=== PATIENT | female | born 1930 | race African-American/Black ===

== ENCOUNTER 2017-12-04 17:05 | Emergency (ER) | payer OTHER ==
[2017-12-04 17:23] VITALS: BMI 37.5
--- NOTE | 2017-12-04 17:33 | PDOC ---
History of Present Illness - General Chief Complaint: Pain, Acute Stated Complaint: PAIN Time Seen by Provider: 12/04/17 17:33 - History of Present Illness Initial Comments: 12/04/17 17:36 Ms. Flynn is an 87 yo female w/ pmh of COPD, morbid obesity, CAD, HTN, hypothyroidism, and mild dementia who presents with complaints of right lower extremity pain. She reports she fell out of her wheelchair and has had pain since. [facility] staff also report she has been slightly "more" demented than normal lately. The patient denies chest pain, shortness of breath, headache and dizziness. Denies fever, chills, nausea, vomit, diarrhea and constipation. Denies dysuria, frequency, urgency and hematuria. Allergies: Lisinopril, penicillin Past History - Past Medical History Allergies/Adverse Reactions: Allergies Allergy/AdvReac Type Severity Reaction Status Date / Time lisinopril Allergy Verified 04/28/15 18:11 penicillin V Allergy Verified 04/28/15 18:11 Penicillins Allergy Verified 04/28/15 18:11 Home Medications: Ambulatory Orders Albuterol 2.5/Ipratropium 0.5 [Duoneb -] 1 neb IH Q6H 10/09/14 Apixaban [Eliquis] 5 mg PO BID 10/09/14 Carvedilol [Coreg] 12.5 mg PO BID 10/09/14 Mag Hydrox/Al Hydrox/Simeth [MAALOX *SUSPENSION* -] 30 ml PO BID 10/09/14 Salmeterol/Fluticasone [Advair 100Mcg/50Mcg -] 1 inh PO BID 10/09/14 Simvastatin [Zocor -] 10 mg PO HS 10/09/14 metFORMIN HCL [Glucophage -] 500 mg PO DAILY 10/09/14 Acetaminophen [Tylenol .Regular Strength -] 650 mg PO Q6H PRN 11/16/14 Phenytoin Na Extended [Dilantin -] 300 mg PO HS capsule 11/19/14 Ranitidine [Zantac -] 150 mg PO BID tablet 11/19/14 Latanoprost 0.005% Eye Drops [Xalatan 0.005% Eye Drops -] 1 drop OS HS 04/28/15 Fluticasone Prop 0.05% Nasal [Flonase -] 2 spray NS DAILY #20 spray 05/15/15 Levothyroxine [Synthroid -] 25 mcg PO DAILY@0700 #30 tablet 05/15/15 Zinc Oxide/Panthenol/Vitamin E [Balmex Cream -] 1 applic TP BID #1 tube predniSONE [Deltasone -] 5 mg PO DAILY #30 tablet 05/15/15 Cyanocobalamin [Vitamin B12 -] 1,000 mcg PO DAILY 12/04/17 Escitalopram Oxalate [Lexapro -] 5 mg PO DAILY 12/04/17 Furosemide [Lasix] 40 mg PO DAILY 12/04/17 Hydroxyzine HCl 25 mg PO DAILY 12/04/17 Ranitidine [Zantac -] 150 mg PO BID 12/04/17 Anemia: Yes Asthma: Yes Cardiac Disorders: Yes (ME) COPD: Yes CHF: Yes Diabetes: Yes GI Disorders: Yes (anemia,gerd, gastritis) Disorders: No HTN: Yes Hypercholesterolemia: Yes Thyroid Disease: Yes (hypo) - Surgical History Abdominal Surgery: Yes (hernia repair) Cholecystectomy: Yes - Immunization History Immunization Up to Date: Yes - Suicide/Smoking/Psychosocial Hx Smoking History: Never smoked Have you smoked in the past 12 months: Yes Number of Cigarettes Smoked Daily: 10 If you are a former smoker, when did you quit?: JUN 2014 'Breaking Loose' booklet given: 10/09/14 Hx Alcohol Use: No Drug/Substance Use Hx: No Substance Use Type: None Hx Substance Use Treatment: No Review of Systems - Review of Systems Comments:: 12/04/17 17:36 GENERAL/CONSTITUTIONAL: No fever or chills. No weakness. HEAD, EYES, EARS, NOSE AND THROAT: No change in vision. No ear pain or discharge. No sore throat. CARDIOVASCULAR: No chest pain or shortness of breath RESPIRATORY: No cough, wheezing, or hemoptysis. GASTROINTESTINAL: No nausea, vomiting, diarrhea or constipation. GENITOURINARY: No dysuria, frequency, or change in urination. MUSCULOSKELETAL: +RLE pain as described. SKIN: No rash NEUROLOGIC: No headache, vertigo, loss of consciousness, or change in strength/ sensation. ENDOCRINE: No increased thirst. No abnormal weight change HEMATOLOGIC/LYMPHATIC: No anemia, easy bleeding, or history of blood clots. ALLERGIC/IMMUNOLOGIC: No hives or skin allergy. *Physical Exam - Vital Signs Last Vital Signs Temp Pulse Resp BP Pulse Ox 97.6 F 95 H 18 114/65 97 12/04/17 17:20 12/04/17 17:20 12/04/17 17:20 12/04/17 17:20 12/04/17 17:20 - Physical Exam Comments: 12/04/17 17:36 GENERAL: Awake, alert, and fully oriented, in no acute distress HEAD: No signs of trauma, normocephalic, atraumatic EYES: PERRLA, EOMI, sclera anicteric, conjunctiva clear ENT: Auricles normal inspection, hearing grossly normal, nares patent, oropharynx clear without exudates. Moist mucosa NECK: Normal ROM, supple, no lymphadenopathy, JVD, or masses LUNGS: No distress, speaks full sentences, clear to auscultation bilaterally HEART: Regular rate and rhythm, normal S1 and S2, no murmurs, rubs or gallops, peripheral pulses normal and equal bilaterally. ABDOMEN: Soft, nontender, normoactive bowel sounds. No guarding, no rebound. No masses EXTREMITIES: +Pain with palpation of Right knee. Pain with movement of knee joint. Otherwise normal inspection, normal range of motion, no edema. No clubbing or cyanosis. NEUROLOGICAL: Cranial nerves II through XII grossly intact. Normal speech, normal gait, no focal sensorimotor deficits SKIN: Warm, Dry, normal turgor, no rashes or lesions noted. ED Treatment Course - LABORATORY CBC & Chemistry Diagram: 12/04/17 18:05 12/04/17 18:05 Medical Decision Making - Medical Decision Making 12/04/17 20:41 Ms. Flynn is an 87 yo female w/ pmh as described who presents for evaluation of R knee pain. XR femur, knee, tib/fib negative for acute process. Head CT and labs as below also sent for evaluation of possible increased dementia all negative. Discharging to home for further outpatient evaluation. Laboratory Results - last 24 hr 12/04/17 12/04/17 12/04/17 18:05 18:05 18:05 WBC 7.2 RBC 4.58 Hgb 14.0 Hct 43.3 D MCV 94.5 MCH 30.6 MCHC 32.3 RDW 15.3 D Plt Count 256 MPV 8.7 D Absolute Neuts (auto) 3.9 Neutrophils % 54.3 Lymphocytes % 31.4 D Monocytes % 11.1 H Eosinophils % 2.4 D Basophils % 0.8 Nucleated RBC % 0 Sodium 144 Potassium 4.3 Chloride 106 Carbon Dioxide 30 Anion Gap 8 BUN 17 Creatinine 0.8 Creat Clearance w eGFR > 60 Random Glucose 104 Calcium 9.2 Total Bilirubin 0.1 L AST 15 ALT 16 Alkaline Phosphatase 113 Total Protein 6.8 Albumin 3.3 L Urine Color Yellow Urine Appearance Clear Urine pH 5.0 Ur Specific [place] 1.017 Urine Protein Negative Urine Glucose (UA) Negative Urine Ketones Negative Urine Blood Negative Urine Nitrite Positive Urine Bilirubin Negative Urine Urobilinogen Negative Ur Leukocyte Esterase 1+ H Urine WBC (Auto) 2 Urine RBC (Auto) None Ur Epithelial Cells Rare Urine Bacteria Few Hyaline Casts 26 Urine Mucus Rare *DC/Admit/Observation/Transfer Diagnosis at time of Disposition: Knee pain Qualifiers: Chronicity: acute Laterality: right Qualified Code(s): M25.561 - Pain in right knee - Discharge Dispostion Disposition: HOME - Referrals Referrals: Po Aldana MD [Primary Care Provider] - - Patient Instructions Printed Discharge Instructions: DI for Knee Pain Additional Instructions: Please follow-up with primary care provider early next week for further evaluation. Return to ER if any increase in pain, fever, chills, or other concerning symptoms. - Post Discharge Activity
[2017-12-04] MEDS ORDERED: ACETAMINOPHEN 500 MG TABLET (FP) PO ONE (18:03)
[2017-12-04] MEDS ORDERED: ACETAMINOPHEN 325 MG TABLET (FP) ONE (18:13)
[2017-12-04 18:21] LABS: BASO % 0.8 % (0-2.0); EOS % 2.4 % (0-4.5); HEMATOCRIT 43.3 % (32.4-45.2); LYMPH % 31.4 % (8-40); MCH 30.6 pg (25.7-33.7); MCHC 32.3 g/dl (32.0-36.0); MEAN CELL VOLUME 94.5 fl (80-96); MEAN PLT VOLUME 8.7 fl (7.5-11.1); MONO % 11.1 % (3.8-10.2); NEUT % 54.3 % (42.8-82.8); PLATELET COUNT 256 K/MM3 (134-434); RBC 4.58 M/mm3 (3.60-5.2); RDW 15.3 % (11.6-15.6); WHITE BLOOD COUNT 7.2 K/mm3 (4.0-10.0)
[2017-12-04 18:40] LABS: ALBUMIN 3.3 g/dl (3.4-5.0); ALK PHOS 113 U/L (45-117); ANION GAP 8 (8-16); BILIRUBIN,TOTAL 0.1 mg/dL (0.2-1.0); BLOOD UREA NITROGEN 17 mg/dL (7-18); CALCIUM 9.2 mg/dL (8.5-10.1); CHLORIDE 106 mmol/L (98-107); CO2 30 mmol/L (21-32); CREATININE 0.8 mg/dL (0.55-1.02); GLUCOSE,RANDOM 104 mg/dL (74-106); SGPT/ALT 16 U/L (12-78); SODIUM 144 mmol/L (136-145); TOT PROT 6.8 g/dl (6.4-8.2)
[2017-12-04 18:41] LABS: POTASSIUM 4.3 mmol/L (3.5-5.1); SGOT/AST 15 U/L (15-37)
[2017-12-04 18:51] LABS: URINE APPEARANCE CLEAR; URINE BILIRUBIN NEGATIVE (<2.0 mg/dL); URINE COLOR YELLOW; URINE GLUCOSE (UA) NEGATIVE (NEGATIVE); URINE KETONE NEGATIVE (NEGATIVE); URINE NITRITE POSITIVE (NEGATIVE); URINE PROTEIN NEGATIVE (NEGATIVE); URINE UROBILINOGEN NEGATIVE mg/dL (0.2-1.0)
[2017-12-04 18:52] LABS: URINE LEUK ESTERASE 1+ (NEGATIVE)
--- NOTE | 2017-12-04 18:55 | PDOC ---
Attending Attestation - HPI HPI: 12/04/17 22:16 Ms. Yaritza Flynn is a 87 year old female with past medical history of baseline Seizure, AFIB, HTN, Asthma, COPD, O2 Dependent, Gastritis, Osteoarthritis and DM presents to the emergency department via EMS with R. knee pain. The patient presents s/p a fall out of her wheelchair. Unable to get a detailed history due to the patients mental status. (+) baseline demented. Allergies: Lisinopril, penicillin Social history: Former smoker. No use of alcohol or recreational drugs used. Surgical history: Cholecystectomy and Hernia repair. PCP: Po Aldana - Physicial Exam PE: 12/04/17 22:16 General: Well appearing, awake , oriented to person and place, sleepy but arousable and follows some commands HEENT: NCAT, PERRL, EOMI, clear conjunctiva, anicteric, moist mucus membranes, clear oropharynx, no oral lesions.. Neck: neck supple, FROM Resp: CTAB, normal and even respirations, no respiratory distress CVS: RRR, no murmurs, 2+ peripheral pulses throughout, no peripheral edema Abdomen: soft, NTND, no peritoneal signs. Back: nontender, normal inspection and ROM MSK: No laxity. (+) R. knee tenderness. no edema, VILLAVICENCIO x4, ROM intact. No clubbing or cyanosis. normal bulk and tone. n o warmth over joint or swelling. Neuro: (+) AOx2 (+) Disoriented at baseline. no focal neurologic deficits. Skin: No warmth or swelling. well perfused, cap refill <2 sec, normal color for ethnicity. <Nel Chaudhry - Last Filed: 12/04/17 22:16> - Resident Resident Name: Lucio Knight - ED Attending Attestation I have performed the following: I have examined & evaluated the patient, The case was reviewed & discussed with the resident, I agree w/resident's findings & plan, Exceptions are as noted - Medical Decision Making 12/04/17 18:55 A portion of this note was documented by scribe services under my direction. I have reviewed the details of the note, within reason, and agree with the documentation with the following case summary and management plan written by me. Yaritza Flynn 87 YOF with dementia, obesity, Afib, CHF, COPD, DM2, HTN, HLD, seizure presenting with right knee pain, s/p fall from wheelchair at [place] today. History limited due to baseline dementia and mental status. DDx. arthritis, knee pain, effusion, CVA; doubt septic joint w/o joint effusion or signs of infection. At baseline mental status; also doubt DVT or vascular pathology with exam. Vital signs wnl Plan: CBC, CMP, UA, CT head to r/o intracranial abnormalities/CVA. At baseline mental status. Labs unremarkable, lytes wnl. UA neg for infection, unremarkable. CT head neg for bleed or CVA; old microvascular changes/ischemic changes; however opacification of sinuses, ?otitis media, but clinical exam wnl, no signs of AOM on exam, no mastoiditis. no tenderness with pinna manipulation, so no indication for treat, not clinically correlated. nontoxic appearing, non septic. Discharge in stable condition back to [place]. 12/05/17 01:30 <Lisa Metzger - Last Filed: 12/05/17 01:31>
[2017-12-04 19:05] LABS: EPI CELLS RARE /HPF (FEW); URINE BACTERIA FEW /hpf (NONE SEEN); URINE HYALINE CAST 26 /lpf; URINE MUCUS RARE
[2017-12-05 02:11] VITALS: BP 121/68; PULSE 87; TEMP 97.9
== END 2017-12-05 01:37 ==
LOC: JER 17:05
DX: M25.561 Pain in right knee (principal); W05.0XXA Fall from non-moving wheelchair, initial encounter; Y93.89 Activity, other specified; Y92.128 Other place in nursing home as the place of occurrence of the external cause; Y99.8 Other external cause status; I25.10 Atherosclerotic heart disease of native coronary artery without angina pectoris; I10 Essential (primary) hypertension; I50.9 Heart failure, unspecified; I25.2 Old myocardial infarction; E11.9 Type 2 diabetes mellitus without complications; Z79.84 Long term (current) use of oral hypoglycemic drugs; E03.9 Hypothyroidism, unspecified; J44.9 Chronic obstructive pulmonary disease, unspecified; J45.909 Unspecified asthma, uncomplicated; D64.9 Anemia, unspecified; K21.9 Gastro-esophageal reflux disease without esophagitis; F03.90 Unspecified dementia, unspecified severity, without behavioral disturbance, psychotic disturbance, mood disturbance, and anxiety; E66.9 Obesity, unspecified; Z68.37 Body mass index [BMI] 37.0-37.9, adult; Z88.0 Allergy status to penicillin; Z88.8 Allergy status to other drugs, medicaments and biological substances
CPT/HCPCS: 36415; 70450-TC; 73552-TC-RT-FY; 73560-TC-RT-FY; 73590-TC-RT-FY; 80053; 81003; 81015; 85025; 87086; 87186; 99283-25